=== PATIENT | male | born 1930 | race Caucasian/White ===

== ENCOUNTER 2018-05-21 19:31 | Emergency (ER) | payer MEDICARE ==
[2018-05-21] MEDS ORDERED: Aspirin 81 MG Tab.Chew PO ONE (20:01)
[2018-05-21] MEDS ORDERED: Albuterol 0.083% 2.5 MG/3 ML Neb Soln NEB ONE (20:02)
[2018-05-21] MEDS ORDERED: Sodium Chloride 0.9% 10 ML Syringe FLUSH PRN (20:02)
--- NOTE | 2018-05-21 20:08 | EDM.PDOC ---
ED HPI GENERAL MEDICAL PROBLEM - General Chief Complaint: Chest Pain Stated Complaint: CHESTPAIN Time Seen by Provider: 05/21/18 20:03 Source of Information: Reports: Patient, Family History Limitations: Reports: No Limitations - History of Present Illness INITIAL COMMENTS - FREE TEXT/NARRATIVE: Awoke at 2am with substernal chest pressure, pleuritic, non-radiating. Symptoms are improving, rates it at 3/10. No h/o CAD. Has had a cough. Onset: Today Onset Date: 05/21/18 Onset Time: 02:00 Location: Reports: Chest Severity: Moderate Worsens with: Reports: Breathing Midsternal chest region Pain Score (Numeric/FACES): 4 - Related Data Allergies Allergy/AdvReac Type Severity Reaction Status Date / Time morphine Allergy Difficulty Verified 05/21/18 19:52 Breathing Home Meds: Home Meds Albuterol [Ventolin HFA] 2 puff IH Q4H PRN 05/21/18 [History] Aspirin [Adult Aspirin] 81 mg PO DAILY 05/21/18 [History] Budesonide/Formoterol [Symbicort 160-4.5 MCG] 1 puff BID 05/21/18 [History] Fish Oil/[place]-3 Fatty Acids [Fish Oil 1,000 MG] 1,000 mg BEDTIME 05/21/18 [ History] Sertraline [Zoloft] 150 mg PO DAILY 05/21/18 [History] Tamsulosin [Tamsulosin 24 Hr] 0.4 mg PO BEDTIME 05/21/18 [History] Terazosin [Hytrin] 2 mg PO BEDTIME 05/21/18 [History] Vit A/Vit C/Vit E/Zinc/Copper [Preservision] 1 tab DAILY 05/21/18 [History] amLODIPine Besylate [Norvasc] 5 mg PO DAILY 05/21/18 [History] Past Medical History Cardiovascular History: Denies: CAD, [place] Respiratory History: Reports: Asthma Genitourinary History: Reports: BPH Social & Family History - Tobacco Use Smoking Status *Q: Never Smoker ED ROS GENERAL - Review of Systems Review Of Systems: See Below Constitutional: Reports: Diaphoresis HEENT: Reports: No Symptoms Respiratory: Reports: Shortness of Breath, Cough Cardiovascular: Reports: Chest Pain Endocrine: Reports: No Symptoms GI/Abdominal: Reports: No Symptoms : Reports: No Symptoms Musculoskeletal: Reports: No Symptoms Skin: Reports: No Symptoms Neurological: Reports: No Symptoms Psychiatric: Reports: No Symptoms Hematologic/Lymphatic: Reports: No Symptoms Immunologic: Reports: No Symptoms ED EXAM, GENERAL - Physical Exam Exam: See Below Exam Limited By: No Limitations General Appearance: Alert, WD/WN, No Apparent Distress Eye Exam: Bilateral Eye: EOMI, PERRL Nose: Normal Inspection Throat/Mouth: No Airway Compromise Head: Atraumatic, Normocephalic Neck: Full Range of Motion Respiratory/Chest: No Respiratory Distress, Rhonchi, Wheezing Cardiovascular: Regular Rate, Rhythm, No Murmur, No Rub GI/Abdominal: Normal Bowel Sounds, Soft, Non-Tender Back Exam: Full Range of Motion Extremities: Normal Range of Motion, Pedal Edema Neurological: Alert, Normal Cognition, No Motor/Sensory Deficits Psychiatric: Normal Affect, Normal Mood EKG INTERPRETATION EKG Date: 05/21/18 Time: 19:36 Rhythm: NSR Rate (Beats/Min): 85 [place]: LAD-Left [place] Deviation P-Wave: Present QRS: Normal ST-T: Normal QT: Normal Course - Vital Signs Last Recorded V/S: Last Vital Signs Temp 36.9 C 05/21/18 19:31 Pulse 88 05/21/18 19:31 Resp 20 05/21/18 19:31 BP 117/55 L 05/21/18 19:31 Pulse Ox 94 L 05/21/18 19:31 - Orders/Labs/Meds Orders: Active Orders 24 hr Category Date Time Status EKG Documentation Completion [RC] ASDIRECTED Care 05/21/18 20:00 Active RT Aerosol Therapy [RC] ASDIRECTED Care 05/21/18 20:02 Active Ang Chest [CT] Stat Exams 05/21/18 21:23 Taken CXR [Chest 1V Frontal] [CR] Stat Exams 05/21/18 20:00 Taken CULTURE BLOOD [BC] Urgent Lab 05/21/18 19:45 Received CULTURE BLOOD [BC] Urgent Lab 05/21/18 20:28 Received Sodium Chloride 0.9% [Normal Saline] 1,000 ml Med 05/21/18 21:00 Active IV ASDIRECTED Sodium Chloride 0.9% [Saline Flush] Med 05/21/18 20:02 Active 10 ml FLUSH ASDIRECTED PRN cephALEXin [Keflex] Med 05/21/18 23:41 Once 500 mg PO ONETIME ONE predniSONE Med 05/21/18 23:42 Once 40 mg PO ONETIME ONE Blood Culture x2 Reflex Set [OM.PC] Urgent Oth 05/21/18 20:00 Ordered Saline Lock Insert [OM.PC] Routine Oth 05/21/18 20:02 Ordered EKG 12 Lead [EK] Stat Ther 05/21/18 20:00 Ordered Medication Orders Sodium Chloride (Normal Saline) 1,000 mls @ 100 mls/hr IV ASDIRECTED ZARIA Sodium Chloride (Saline Flush) 10 ml FLUSH ASDIRECTED PRN PRN Reason: Keep Vein Open Labs: Laboratory Tests 05/21/18 05/21/18 05/21/18 Range/Units 19:45 19:45 19:45 WBC 14.4 H (4.5-12.0) X10-3/uL RBC 4.70 (4.30-5.75) x10(6)uL Hgb 14.4 (11.5-15.5) g/dL Hct 43.0 (30.0-51.3) % MCV 91.6 (80-96) fL MCH 30.7 (27.7-33.6) pg MCHC 33.5 (32.2-35.4) g/dL RDW 13.7 (11.5-15.5) % Plt Count 273 (125-369) X10(3)uL MPV 9.7 (7.4-10.4) fL Add Manual Diff Yes Neutrophils % (Manual) 76 (46-82) % Band Neutrophils % 6 (0-6) % Lymphocytes % (Manual) 11 L (13-37) % Monocytes % (Manual) 6 (4-12) % Basophils % (Manual) 1 (0-2) % PT 10.6 (8.7-11.1) INR 1.09 (0.89-1.13) D-Dimer, Quantitative (0.0-0.59) mg/LFEU Sodium 138 (135-145) mmol/L Potassium 3.8 (3.5-5.3) mmol/L Chloride 103 (100-110) mmol/L Carbon Dioxide 26 (21-32) mmol/L BUN 22 H (7-18) mg/dL Creatinine 1.3 (0.70-1.30) mg/dL Est Cr Clr Drug Dosing 37.27 mL/min Estimated GFR (MDRD) 52 L (>60) BUN/Creatinine Ratio 16.9 (9-20) Glucose 187 H (80-116) mg/dL Lactic Acid (0.4-2.2) mmol/L Calcium 8.9 (8.6-10.2) mg/dL Total Bilirubin 1.1 (0.1-1.3) mg/dL AST 24 (5-25) IU/L ALT 16 (12-36) U/L Alkaline Phosphatase 106 (56-112) IU/L Troponin I (<0.017-0.056) ng/mL Total Protein 7.3 (6.0-8.0) g/dL Albumin 3.3 (2.9-4.5) g/dL Globulin 4.0 g/dL Albumin/Globulin Ratio 0.8 Urine Color (YELLOW) Urine Appearance (CLEAR) Urine pH (5.0-6.5) Ur Specific [place] (1.010-1.025) Urine Protein (NEGATIVE) mg/dL Urine Glucose (UA) (NEGATIVE) mg/dL Urine Ketones (NEGATIVE) mg/dL Urine Occult Blood (NEGATIVE) Urine Nitrite (NEGATIVE) Urine Bilirubin (NEGATIVE) Urine Urobilinogen (NEGATIVE) mg/dL Ur Leukocyte Esterase (NEGATIVE) Urine RBC (0) Urine WBC (0) Ur Squamous Epith Cells (NS,R,O) Urine Bacteria (NS) Urine Mucus (NS) 05/21/18 05/21/18 05/21/18 Range/Units 19:45 19:45 20:54 WBC (4.5-12.0) X10-3/uL RBC (4.30-5.75) x10(6)uL Hgb (11.5-15.5) g/dL Hct (30.0-51.3) % MCV (80-96) fL MCH (27.7-33.6) pg MCHC (32.2-35.4) g/dL RDW (11.5-15.5) % Plt Count (125-369) X10(3)uL MPV (7.4-10.4) fL Add Manual Diff Neutrophils % (Manual) (46-82) % Band Neutrophils % (0-6) % Lymphocytes % (Manual) (13-37) % Monocytes % (Manual) (4-12) % Basophils % (Manual) (0-2) % PT (8.7-11.1) INR (0.89-1.13) D-Dimer, Quantitative 0.77 H (0.0-0.59) mg/LFEU Sodium (135-145) mmol/L Potassium (3.5-5.3) mmol/L Chloride (100-110) mmol/L Carbon Dioxide (21-32) mmol/L BUN (7-18) mg/dL Creatinine (0.70-1.30) mg/dL Est Cr Clr Drug Dosing mL/min Estimated GFR (MDRD) (>60) BUN/Creatinine Ratio (9-20) Glucose (80-116) mg/dL Lactic Acid 1.6 (0.4-2.2) mmol/L Calcium (8.6-10.2) mg/dL Total Bilirubin (0.1-1.3) mg/dL AST (5-25) IU/L ALT (12-36) U/L Alkaline Phosphatase (56-112) IU/L Troponin I < 0.017 L (<0.017-0.056) ng/mL Total Protein (6.0-8.0) g/dL Albumin (2.9-4.5) g/dL Globulin g/dL Albumin/Globulin Ratio Urine Color (YELLOW) Urine Appearance (CLEAR) Urine pH (5.0-6.5) Ur Specific [place] (1.010-1.025) Urine Protein (NEGATIVE) mg/dL Urine Glucose (UA) (NEGATIVE) mg/dL Urine Ketones (NEGATIVE) mg/dL Urine Occult Blood (NEGATIVE) Urine Nitrite (NEGATIVE) Urine Bilirubin (NEGATIVE) Urine Urobilinogen (NEGATIVE) mg/dL Ur Leukocyte Esterase (NEGATIVE) Urine RBC (0) Urine WBC (0) Ur Squamous Epith Cells (NS,R,O) Urine Bacteria (NS) Urine Mucus (NS) 05/21/18 05/21/18 Range/Units 22:45 23:20 WBC (4.5-12.0) X10-3/uL RBC (4.30-5.75) x10(6)uL Hgb (11.5-15.5) g/dL Hct (30.0-51.3) % MCV (80-96) fL MCH (27.7-33.6) pg MCHC (32.2-35.4) g/dL RDW (11.5-15.5) % Plt Count (125-369) X10(3)uL MPV (7.4-10.4) fL Add Manual Diff Neutrophils % (Manual) (46-82) % Band Neutrophils % (0-6) % Lymphocytes % (Manual) (13-37) % Monocytes % (Manual) (4-12) % Basophils % (Manual) (0-2) % PT (8.7-11.1) INR (0.89-1.13) D-Dimer, Quantitative (0.0-0.59) mg/LFEU Sodium (135-145) mmol/L Potassium (3.5-5.3) mmol/L Chloride (100-110) mmol/L Carbon Dioxide (21-32) mmol/L BUN (7-18) mg/dL Creatinine (0.70-1.30) mg/dL Est Cr Clr Drug Dosing mL/min Estimated GFR (MDRD) (>60) BUN/Creatinine Ratio (9-20) Glucose (80-116) mg/dL Lactic Acid (0.4-2.2) mmol/L Calcium (8.6-10.2) mg/dL Total Bilirubin (0.1-1.3) mg/dL AST (5-25) IU/L ALT (12-36) U/L Alkaline Phosphatase (56-112) IU/L Troponin I < 0.017 L (<0.017-0.056) ng/mL Total Protein (6.0-8.0) g/dL Albumin (2.9-4.5) g/dL Globulin g/dL Albumin/Globulin Ratio Urine Color Yellow (YELLOW) Urine Appearance Clear (CLEAR) Urine pH 5.0 (5.0-6.5) Ur Specific [place] 1.010 (1.010-1.025) Urine Protein Negative (NEGATIVE) mg/dL Urine Glucose (UA) Normal (NEGATIVE) mg/dL Urine Ketones Negative (NEGATIVE) mg/dL Urine Occult Blood Negative (NEGATIVE) Urine Nitrite Negative (NEGATIVE) Urine Bilirubin Small H (NEGATIVE) Urine Urobilinogen Normal (NEGATIVE) mg/dL Ur Leukocyte Esterase Negative (NEGATIVE) Urine RBC 0-5 (0) Urine WBC 0-5 (0) Ur Squamous Epith Cells Occasional (NS,R,O) Urine Bacteria Few H (NS) Urine Mucus Few H (NS) Meds: Medications Generic Name Dose Route Start Last Admin Trade Name Freq PRN Reason Stop Dose Admin Sodium Chloride 1,000 mls @ 100 mls/hr 05/21/18 21:00 Normal Saline IV ASDIRECTED ZARIA Sodium Chloride 10 ml 05/21/18 20:02 Saline Flush FLUSH ASDIRECTED PRN Keep Vein Open Discontinued Medications Generic Name Dose Route Start Last Admin Trade Name Freq PRN Reason Stop Dose Admin Albuterol 2.5 mg 05/21/18 20:02 05/21/18 20:17 Proventil Neb Soln NEB 05/21/18 20:03 2.5 mg ONETIME ONE Administration Aspirin 324 mg 05/21/18 20:01 05/21/18 20:21 Aspirin PO 05/21/18 20:02 324 mg ONETIME ONE Administration Sodium Chloride 500 mls @ 500 mls/hr 05/21/18 20:02 05/21/18 20:20 Normal Saline IV 05/21/18 21:01 500 mls/hr .BOLUS ONE Administration Iopamidol 75 ml 05/21/18 21:38 05/21/18 21:53 Isovue-370 (76%) IV 05/21/18 21:39 75 ml ONETIME ONE Administration - Radiology Interpretation Free Text/Narrative:: CTA Chest: No PE. Mild patchy and platelike atelectasis in the posterior lung bases, left greater than right. - Re-Assessments/Exams Free Text/Narrative Re-Assessment/Exam: 05/21/18 23:44 Symptoms resolved after Albuterol Nebulizer treatment. Lungs clear to ascultation on re-examination. Departure - Departure Time of Disposition: 23:45 Disposition: Home, Self-Care 01 Condition: Good Clinical Impression: Bronchitis Chest pain Qualifiers: Chest pain type: unspecified Qualified Code(s): R07.9 - Chest pain, unspecified Asthma exacerbation Qualifiers: Asthma severity: moderate Asthma persistence: unspecified Qualified Code(s): J45.901 - Unspecified asthma with (acute) exacerbation Instructions: Asthma, Adult, Nonspecific Chest Pain, Upper Respiratory Infection, Adult, [id number] Referrals: Donn Crawford MD [Primary Care Provider] - Forms: ED Department Discharge Additional Instructions: Fill prescriptions for Keflex and Prednisone and take as directed. Continue daily aspirin, use your inhalers as directed. Follow up with your primary physician in 2-3 days. Return to the ER as needed. - My Orders Last 24 Hours: My Active Orders 05/21/18 19:45 CULTURE BLOOD [BC] Urgent 05/21/18 20:00 EKG Documentation Completion [RC] ASDIRECTED CXR [Chest 1V Frontal] [CR] Stat Blood Culture x2 Reflex Set [OM.PC] Urgent EKG 12 Lead [EK] Stat 05/21/18 20:02 RT Aerosol Therapy [RC] ASDIRECTED Sodium Chloride 0.9% [Saline Flush] 10 ml FLUSH ASDIRECTED PRN Saline Lock Insert [OM.PC] Routine 05/21/18 20:28 CULTURE BLOOD [BC] Urgent 05/21/18 21:00 Sodium Chloride 0.9% [Normal Saline] 1,000 ml IV ASDIRECTED 05/21/18 21:23 Ang Chest [CT] Stat 05/21/18 23:41 cephALEXin [Keflex] 500 mg PO ONETIME ONE 05/21/18 23:42 predniSONE 40 mg PO ONETIME ONE - Assessment/Plan Last 24 Hours: My Active Orders 05/21/18 19:45 CULTURE BLOOD [BC] Urgent 05/21/18 20:00 EKG Documentation Completion [RC] ASDIRECTED CXR [Chest 1V Frontal] [CR] Stat Blood Culture x2 Reflex Set [OM.PC] Urgent EKG 12 Lead [EK] Stat 05/21/18 20:02 RT Aerosol Therapy [RC] ASDIRECTED Sodium Chloride 0.9% [Saline Flush] 10 ml FLUSH ASDIRECTED PRN Saline Lock Insert [OM.PC] Routine 05/21/18 20:28 CULTURE BLOOD [BC] Urgent 05/21/18 21:00 Sodium Chloride 0.9% [Normal Saline] 1,000 ml IV ASDIRECTED 05/21/18 21:23 Ang Chest [CT] Stat 05/21/18 23:41 cephALEXin [Keflex] 500 mg PO ONETIME ONE 05/21/18 23:42 predniSONE 40 mg PO ONETIME ONE
[2018-05-21] MEDS: Sodium Chloride 0.9% 500 ML IV ONE ×2 (20:20→23:46)
[2018-05-21] MEDS ORDERED: Sodium Chloride 0.9% 1,000 ML IV SCH (21:00)
[2018-05-21] MEDS ORDERED: Iopamidol 755 Mg/ML 75 ML Bottle IV ONE (21:38)
[2018-05-21] MEDS ORDERED: Cephalexin 500 MG Cap PO ONE (23:41)
[2018-05-21] MEDS ORDERED: predniSONE 20 MG Tab PO ONE (23:42)
--- NOTE | 2018-05-24 10:36 | CR ---
INDICATION: Chest pain. CHEST, AP VIEW: FINDINGS: There is earlier imaging from February of 2008. There is some curvilinear scarring or atelectasis at the left lung base. The lungs are clear of acute infiltrate or effusion. No CHF. IMPRESSION: No acute pneumonia or CHF is shown. MTDD
== END 2018-05-21 23:55 | disposition home or self-care (01) ==
LOC: FB.ED 19:31
DX: J45.901 Unspecified asthma with (acute) exacerbation (principal); J40 Bronchitis, not specified as acute or chronic; Z88.5 Allergy status to narcotic agent
CPT/HCPCS: 36415; 71045; 71275; 80053; 81001; 83605; 84484; 85025; 85379; 85610; 87040; 93005; 94640; 96360; 96361; 99285; A9270; J7030; Q9967; J7040